=== PATIENT | male | born 1980 | race Hispanic/Latino ===

== ENCOUNTER 2019-01-07 11:16 | Emergency (ER) | payer OTHER, BC ==
[2019-01-07 11:22] VITALS: BP 157/83; PULSE 68; RESP 18; TEMP 97.8; O2SAT 98; BMI 29.0
[2019-01-07] MEDS ORDERED: Oxycodone/Acetaminophen 5/325 mg Tab PO STA (11:54)
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
== END 2019-01-07 14:27 | disposition home or self-care (01) ==
LOC: ED 11:16
DX: M54.2 Cervicalgia (principal); V49.49XA Driver injured in collision with other motor vehicles in traffic accident, initial encounter; Y92.410 Unspecified street and highway as the place of occurrence of the external cause